=== PATIENT | female | born 1990 | race Caucasian/White ===

== ENCOUNTER 2022-08-19 08:43 | Emergency (ER) | payer BC ==
[~2022-08-19] VITALS: Ht 175.2 cm; Wt 58.5 kg
[~2022-08-19 08:43] MED LIST: ATIVAN0.5 MG PO; BACTRIM DS 8001 TA1 PO; BENADRYL ALLERG25 M5 PO; FLEXERIL10 MG PO; LIDEX 0.05% CRE15 GM T; MEDROL DOSEPAK4 MG PO; MOTRIN600 MG PO; MOTRIN800 MG PO; NKHM; ROBAXIN750 MG PO; TRAMADOL HCL50 MG PO; ULTRAM50 MG PO
[2022-08-19] MEDS ORDERED: METHOCARBAMOL500 M1 PO (10:59)
== END 2022-08-19 11:06 | disposition home or self-care (01) ==
LOC: ED 08:43
DX: S76.011A Strain of muscle, fascia and tendon of right hip, initial encounter (principal); M54.50 Low back pain, unspecified; F41.9 Anxiety disorder, unspecified; X58.XXXA Exposure to other specified factors, initial encounter; Y93.89 Activity, other specified; Y92.89 Other specified places as the place of occurrence of the external cause; Y99.8 Other external cause status

== ENCOUNTER 2024-10-08 22:42 | Emergency (ER) | payer BC ==
[~2024-10-08 22:42] MED LIST changes: +METHOCARBAMOL500 M1 PO
== END 2024-10-09 00:22 | disposition home or self-care (01) ==
LOC: ED 22:42
DX: S96.912A Strain of unspecified muscle and tendon at ankle and foot level, left foot, initial encounter (principal); Z91.030 Bee allergy status; Z79.899 Other long term (current) drug therapy; W50.0XXA Accidental hit or strike by another person, initial encounter; Y93.89 Activity, other specified; Y92.89 Other specified places as the place of occurrence of the external cause; Y99.8 Other external cause status